=== PATIENT | male | born 1960 | race Caucasian/White ===

== ENCOUNTER 2017-09-10 23:40 | Emergency (ER) | payer OTHER ==
[2017-09-11] MEDS ORDERED: SODIUM CHLORIDE 0.9% 1,000 ML IV ONE (00:38)
[2017-09-11] MEDS ORDERED: ONDANSETRON 4 MG/2 ML VIAL IVP STA (00:39)
[2017-09-11] MEDS ORDERED: MORPHINE SULFATE 4 MG/ML SYRINGE IVP STA (00:39)
[2017-09-11 00:59] LABS: Basophils % (A) 0 %; Eosinophils # (A) 0.1 k/uL (0-0.7); Eosinophils % (A) 1 %; HCT 37.7 % (39.0-53.0); HGB 12.8 gm/dL (13.0-17.5); Lymphocytes # (A) 1.3 k/uL (1.0-4.8); Lymphocytes % (A) 11 %; MCH 31.2 pg (25.0-35.0); MCHC 34.1 g/dL (31.0-37.0); MCV 91.6 fL (80.0-100.0); Monocytes # (A) 0.8 k/uL (0-1.0); Monocytes % (A) 7 %; Neutrophils # (A) 9.3 k/uL (1.3-7.7); Neutrophils % (A) 79 %; Platelet Count 430 k/uL (150-450); RBC 4.11 m/uL (4.30-5.90); RDW 12.7 % (11.5-15.5); WBC 11.8 k/uL (3.8-10.6)
[2017-09-11 01:11] LABS: ALT 35 U/L (21-72); AST 17 U/L (17-59); Alkaline Phosphatase 76 U/L (38-126); Amylase 65 U/L (30-110); Anion Gap 17 mmol/L; Blood Urea Nitrogen 11 mg/dL (9-20); Calcium 9.3 mg/dL (8.4-10.2); Carbon Dioxide 25 mmol/L (22-30); Chloride 100 mmol/L (98-107); Glucose 105 mg/dL (74-99); Lipase 77 U/L (23-300); Potassium 4.3 mmol/L (3.5-5.1); Sodium 142 mmol/L (137-145); Total Bilirubin 0.9 mg/dL (0.2-1.3); Total Protein 7.1 g/dL (6.3-8.2)
[2017-09-11 01:19] LABS: Creatine Kinase 94 U/L (55-170)
--- NOTE | 2017-09-11 01:22 | XR ---
EXAMINATION TYPE: XR chest 2V DATE OF EXAM: 09/11/2017 COMPARISON: NONE HISTORY: Right-sided chest pain and back pain. TECHNIQUE: Frontal and lateral views of the chest are obtained. FINDINGS: Heart and mediastinum are normal. There is some patchy infiltrate in the right lower lobe. There is small linear density at the left lung base. There is also right middle lobe wedge-shaped in filtrate. There is no heart failure. Bony thorax is intact. IMPRESSION: There is right middle lobe and right lower lobe pneumonia. Possible small right pleural effusion. No heart failure.
[2017-09-11 01:32] LABS: Creatine Kinase MB 1.1 ng/mL (0.0-2.4); Troponin I <0.012 ng/mL (0.000-0.034)
[2017-09-11] MEDS ORDERED: cefTRIAXone IN SWFI 1,000 MG/10 ML SYRINGE IVP STA (01:39)
[2017-09-11] MEDS ORDERED: AZITHROMYCIN 500 MG in SODIUM CHLORIDE 0.9% 250 ML IVPB STA (01:39)
[2017-09-11] MEDS ORDERED: RX INFO: IV CONTRAST WAS GIVEN 1 EACH MISC MISCELLANE PRN (01:49)
[2017-09-11] MEDS ORDERED: KETOROLAC 30 MG/ML 1 ML VIAL IVP STA (01:50)
[2017-09-11 01:51] LABS: Appearance,Urine Clear (Clear); Bilirubin,Urine Negative (Negative); Blood,Urine Negative (Negative); Color,Urine Yellow; Glucose,Urine (UA) Negative (Negative); Ketones,Urine Negative (Negative); Leukocyte Esterase,Urine Negative (Negative); Nitrite,Urine Negative (Negative); PH, Urine 5.5 (5.0-8.0); Protein,Urine Trace (Negative); Specific Gravity,Urine 1.015 (1.001-1.035)
--- NOTE | 2017-09-11 02:25 | CT ---
EXAMINATION TYPE: CT chest angio for PE DATE OF EXAM: 09/11/2017 COMPARISON: NONE HISTORY: No prior, lower right sided chest and back pain that radiates to abd, R/O PE CT DLP: 534.80 mGycm Automated exposure control for dose reduction was used. CONTRAST: CT Chest for pulmonary embolism performed with with IV Contrast, patient injected with 95ml mL of Iso satnam 370. FINDINGS: There are 3-D post processed images. There is a 6 cm wedge-shaped area of pneumonic consolidation in the right middle lobe. There is small right pleural effusion. There is some infiltrate and atelectasis at the right posterior lung base. T here is mild subsegmental atelectasis at the left lung base. I see no filling defects in the pulmonar y arteries. There is no evidence of aortic aneurysm or dissection. There are a few mediastinal lymph nodes that measure up to 1 cm. There are no hilar masses. The bony thorax is intact. IMPRESSION: Pneumonic infiltrates and consolidation as above in the right middle lobe and right lower lobe consis tent with pneumonia. No evidence of pulmonary embolism. Small right pleural effusion.
[2017-09-11 02:45] VITALS: RESP 20
[2017-09-11 03:22] VITALS: TEMP 98.8
--- NOTE | 2017-09-11 03:59 | ED ---
General Adult HPI - General Chief complaint: Back Pain/Injury Stated complaint: side and back pain Time Seen by Provider: 09/11/17 00:02 Source: patient Mode of arrival: ambulatory Limitations: no limitations - History of Present Illness Initial comments: 56-year-old male patient presents to the emergency department today for evaluation of right-sided flank pain. Patient states that he has had this pain for approximately the last week however has been worsening. Patient states that today the pain moved over into the right upper quadrant and up into the right side of his chest. Patient states that it hurts when he takes a deep breath however denies any dyspnea. He states that he has had a dry cough with this as well. Denies any fevers or chills. Denies any nausea or vomiting. Denies any sweats. Patient denies any recent rash, nausea, vomiting, diarrhea, constipation, back pain, numbness, tingling, dizziness, weakness, hematuria, dysuria, urinary urgency, urinary frequency, headache, visual changes, or any other complaints. - Related Data Previous Rx's Medication Instructions Recorded Azithromycin [Zithromax] 500 mg PO DAILY #5 tab 09/11/17 Ketorolac [Toradol] 10 mg PO Q6HR #12 tab 09/11/17 Allergies Allergy/AdvReac Type Severity Reaction Status Date / Time No Known Allergies Allergy Verified 09/10/17 23:51 Review of Systems ROS Statement: Those systems with pertinent positive or pertinent negative responses have been documented in the HPI. ROS Other: All systems not noted in ROS Statement are negative. Past Medical History Past Medical History: No Reported History History of Any Multi-Drug Resistant Organisms: None Reported Past Surgical History: Heart Catheterization Past Psychological History: No Psychological Hx Reported Smoking Status: Never smoker Past Alcohol Use History: Occasional Past Drug Use History: None Reported General Exam Limitations: no limitations General appearance: alert, in no apparent distress, other (This is a well- developed, well-nourished adult male patient in no acute distress. Vital signs upon presentation are temperature 100.8F, pulse 91, respirations 18, blood pressure 137/68, pulse ox 96% on room air.) Eye exam: Present: normal appearance, PERRL, EOMI. Absent: scleral icterus, conjunctival injection, periorbital swelling ENT exam: Present: normal exam, normal oropharynx, mucous membranes moist Respiratory exam: Present: normal lung sounds bilaterally. Absent: respiratory distress, wheezes, rales, rhonchi, stridor Cardiovascular Exam: Present: regular rate, normal rhythm, normal heart sounds. Absent: systolic murmur, diastolic murmur, rubs, gallop, clicks GI/Abdominal exam: Present: soft, normal bowel sounds. Absent: distended, tenderness, guarding, rebound, rigid Back exam: Present: normal inspection. Absent: CVA tenderness (R), CVA tenderness (L) Neurological exam: Present: alert, oriented X3, CN II-XII intact Psychiatric exam: Present: normal affect, normal mood Skin exam: Present: warm, dry, intact, normal color. Absent: rash Course Vital Signs 09/10/17 09/11/17 09/11/17 23:47 02:44 03:00 Temperature 100.8 F H 99 F 98.8 F Pulse Rate 91 83 87 Respiratory 18 20 20 Rate Blood Pressure 137/68 104/60 110/70 O2 Sat by Pulse 96 95 96 Oximetry EKG Findings - EKG Comments: EKG Findings:: EKG obtained at 0044 shows normal sinus rhythm with minimal voltage criteria for LVH. Ventricular rate is 79, NC interval 164, QR jainism 90, QT 374, QTC 428. No evidence of ST elevation or depression. Medical Decision Making - Medical Decision Making 56-year-old male patient presented to the emergency department today for complaints of right flank pain with radiation into the right side of his chest. Physical examination was relatively unremarkable. No abdominal tenderness, no CVA tenderness. Labs reviewed and did show white blood cell count of 11.8, neutrophil count of 9.3. Urinalysis was negative for any evidence of blood. Influenza testing was negative. Patient did have a fever 100.8 upon arrival. Chest x-ray did show right lower lobe and right middle lobe infiltrate with a right-sided small pleural effusion. Patient was given morphine here in the department but continued to have significant pain so I did order CTA of the chest. CTA just redemonstrated the right middle and right lower lobe pneumonia with the pleural effusion, no evidence of a mass or pulmonary embolism. I did discuss findings and results with the patient. He had significant improvement in his pain with administration of Toradol. Vital signs are stable. We did give a dose of Rocephin and azithromycin here in the emergency department. He' ll be discharged home with a prescription for azithromycin. He is instructed to follow-up with his primary care physician for recheck in 1-2 days. Return parameters were discussed in detail. He verbalizes understanding and agreed with this plan. - Lab Data Result diagrams: 09/11/17 00:20 09/11/17 00:20 Lab Results 09/11/17 09/11/17 09/11/17 Range/Units 00:20 00:20 00:20 WBC 11.8 H (3.8-10.6) k/uL RBC 4.11 L (4.30-5.90) m/uL Hgb 12.8 L (13.0-17.5) gm/dL Hct 37.7 L (39.0-53.0) % MCV 91.6 (80.0-100.0) fL MCH 31.2 (25.0-35.0) pg MCHC 34.1 (31.0-37.0) g/dL RDW 12.7 (11.5-15.5) % Plt Count 430 (150-450) k/uL Neutrophils % 79 % Lymphocytes % 11 % Monocytes % 7 % Eosinophils % 1 % Basophils % 0 % Neutrophils # 9.3 H (1.3-7.7) k/uL Lymphocytes # 1.3 (1.0-4.8) k/uL Monocytes # 0.8 (0-1.0) k/uL Eosinophils # 0.1 (0-0.7) k/uL Basophils # 0.0 (0-0.2) k/uL Sodium 142 (137-145) mmol/L Potassium 4.3 (3.5-5.1) mmol/L Chloride 100 (98-107) mmol/L Carbon Dioxide 25 (22-30) mmol/L Anion Gap 17 mmol/L BUN 11 (9-20) mg/dL Creatinine 1.00 (0.66-1.25) mg/dL Est GFR (CKD-EPI)AfAm >90 (>60 ml/min/1.73 sqM) Est GFR (CKD-EPI)NonAf 84 (>60 ml/min/1.73 sqM) Glucose 105 H (74-99) mg/dL Plasma Lactic Acid José Miguel (0.7-2.0) mmol/L Calcium 9.3 (8.4-10.2) mg/dL Total Bilirubin 0.9 (0.2-1.3) mg/dL AST 17 (17-59) U/L ALT 35 (21-72) U/L Alkaline Phosphatase 76 (38-126) U/L Total Creatine Kinase 94 (55-170) U/L CK-MB (CK-2) 1.1 (0.0-2.4) ng/mL CK-MB (CK-2) Rel Index 1.2 Troponin I <0.012 (0.000-0.034) ng/mL Total Protein 7.1 (6.3-8.2) g/dL Albumin 4.0 (3.5-5.0) g/dL Amylase 65 (30-110) U/L Lipase 77 (23-300) U/L Urine Color Urine Appearance (Clear) Urine pH (5.0-8.0) Ur Specific [place] (1.001-1.035) Urine Protein (Negative) Urine Glucose (UA) (Negative) Urine Ketones (Negative) Urine Blood (Negative) Urine Nitrite (Negative) Urine Bilirubin (Negative) Urine Urobilinogen (<2.0) mg/dL Ur Leukocyte Esterase (Negative) Influenza Type A RNA (Not Detectd) Influenza Type B (PCR) (Not Detectd) 09/11/17 09/11/17 09/11/17 Range/Units 00:20 01:44 01:44 WBC (3.8-10.6) k/uL RBC (4.30-5.90) m/uL Hgb (13.0-17.5) gm/dL Hct (39.0-53.0) % MCV (80.0-100.0) fL MCH (25.0-35.0) pg MCHC (31.0-37.0) g/dL RDW (11.5-15.5) % Plt Count (150-450) k/uL Neutrophils % % Lymphocytes % % Monocytes % % Eosinophils % % Basophils % % Neutrophils # (1.3-7.7) k/uL Lymphocytes # (1.0-4.8) k/uL Monocytes # (0-1.0) k/uL Eosinophils # (0-0.7) k/uL Basophils # (0-0.2) k/uL Sodium (137-145) mmol/L Potassium (3.5-5.1) mmol/L Chloride (98-107) mmol/L Carbon Dioxide (22-30) mmol/L Anion Gap mmol/L BUN (9-20) mg/dL Creatinine (0.66-1.25) mg/dL Est GFR (CKD-EPI)AfAm (>60 ml/min/1.73 sqM) Est GFR (CKD-EPI)NonAf (>60 ml/min/1.73 sqM) Glucose (74-99) mg/dL Plasma Lactic Acid José Miguel 1.4 (0.7-2.0) mmol/L Calcium (8.4-10.2) mg/dL Total Bilirubin (0.2-1.3) mg/dL AST (17-59) U/L ALT (21-72) U/L Alkaline Phosphatase (38-126) U/L Total Creatine Kinase (55-170) U/L CK-MB (CK-2) (0.0-2.4) ng/mL CK-MB (CK-2) Rel Index Troponin I (0.000-0.034) ng/mL Total Protein (6.3-8.2) g/dL Albumin (3.5-5.0) g/dL Amylase (30-110) U/L Lipase (23-300) U/L Urine Color Yellow Urine Appearance Clear (Clear) Urine pH 5.5 (5.0-8.0) Ur Specific [place] 1.015 (1.001-1.035) Urine Protein Trace H (Negative) Urine Glucose (UA) Negative (Negative) Urine Ketones Negative (Negative) Urine Blood Negative (Negative) Urine Nitrite Negative (Negative) Urine Bilirubin Negative (Negative) Urine Urobilinogen 3.0 (<2.0) mg/dL Ur Leukocyte Esterase Negative (Negative) Influenza Type A RNA Not Detected (Not Detectd) Influenza Type B (PCR) Not Detected (Not Detectd) - Radiology Data Radiology results: report reviewed, image reviewed Two-view x-ray of the chest was obtained. Heart mediastinum are normal. There is some patchy infiltrate in the right lower lobe. There is small linear density at the left lung base. There is also right middle lobe wedge-shaped infiltrate. There is no heart failure. Bony thorax is intact. Impression by Dr. Marks shows right middle lobe and right lower lobe pneumonia. Possible small right pleural effusion. No heart failure. CT angio of the chest was obtained. Report was reviewed in its entirety. Impression by Dr. Marks shows pneumonic infiltrates and consolidation as above in the right middle lobe and right lower lobe consistent with pneumonia. No evidence of pulmonary embolism. Small right pleural effusion. Disposition Clinical Impression: Right lower lobe pneumonia, Pleural effusion, right, Right middle lobe pneumonia Disposition: HOME SELF-CARE Condition: Good Instructions: Pneumonia (ED) Additional Instructions: Complete antibiotic prescription and full. Use pain medication as directed. Follow-up with your primary care physician for recheck in 1-2 days. Have repeat chest x-ray performed after completion of antibiotic to ensure clearance of infection. Return here immediately for any new, worsening, or concerning symptoms. Prescriptions: Azithromycin [Zithromax] 500 mg PO DAILY #5 tab Ketorolac [Toradol] 10 mg PO Q6HR #12 tab Is patient prescribed a controlled substance at d/c from ED?: No Referrals: Moisés Milan MD [Primary Care Provider] - 1-2 days Time of Disposition: 03:59
[2017-09-11 04:26] VITALS: BP 102/62; PULSE 97
== END 2017-09-11 04:26 | disposition home or self-care (01) ==
LOC: EC 23:40
DX: J18.9 Pneumonia, unspecified organism (principal); J90 Pleural effusion, not elsewhere classified; Z95.818 Presence of other cardiac implants and grafts
CPT/HCPCS: 36415; 93005; 80053; 82150; 82550; 82553; 83605; 83690; 84484; 85025; 81003; 87040; 87502; 71046; 71275; 99284; 96365; 96366; 96375 ×4; 96361; J2270; J2405; J0456; J0696; J1885; Q9967

== ENCOUNTER 2020-05-23 08:36 | Day surgery (SDC) | payer OTHER ==
[2020-05-21 14:54] VITALS: BMI 31.4
[~2020-05-23 08:36] MED LIST: LACTATED RINGERS 1,000 ML IV SCH; LIDOCAINE 1% (10MG/ML) FOR IV START INTRADERMA PRN
[2020-05-23 09:25] VITALS: RESP 16; TEMP 98.3
[2020-05-23] MEDS ORDERED: MIDAZOLAM 2 MG/2 ML VIAL ONE (10:20)
[2020-05-23] MEDS ORDERED: PROPOFOL 10 MG/ML 20 ML VIAL IV ONE (10:20)
[2020-05-23] MEDS ORDERED: fentaNYL (PF) 50 MCG/ML 2 ML AMP ONE (10:20)
--- NOTE | 2020-05-23 10:27 | P.GSHP ---
History of Present Illness H&P Date: 05/23/20 Chief Complaint: Screening colonoscopy This a 51-year-old male who presents today for screening colonoscopy. Patient denies any significant complaint. Past Medical History Past Medical History: No Reported History History of Any Multi-Drug Resistant Organisms: None Reported Past Surgical History: Heart Catheterization Additional Past Surgical History / Comment(s): COLONOSCOY Past Anesthesia/Blood Transfusion Reactions: No Reported Reaction Smoking Status: Never smoker - Past Family History Mother Family Medical History: No Reported History Medications and Allergies Home Medications Medication Instructions Recorded Confirmed Type HYDROcodone/APAP 5-325MG [Organ 1 tab PO BID 05/21/20 05/23/20 History 5-325] Allergies Allergy/AdvReac Type Severity Reaction Status Date / Time No Known Allergies Allergy Verified 05/21/20 14:48 Surgical - Exam Vital Signs Temp Pulse Resp BP Pulse Ox 98.3 F 80 16 145/91 96 05/23/20 09:21 05/23/20 09:21 05/23/20 09:21 05/23/20 09:21 05/23/20 09:21 - General well developed, well nourished, no distress - Eyes PERRL - ENT normal pinna - Neck no masses - Respiratory normal expansion - Cardiovascular Rhythm: regular - Abdomen Abdomen: soft, non tender Assessment and Plan Assessment: We will perform screening colonoscopy
--- NOTE | 2020-05-23 10:43 | P.OP ---
Date of Procedure: 05/23/20 Preoperative Diagnosis: Screening colonoscopy Postoperative Diagnosis: Normal colonoscopy Procedure(s) Performed: Colonoscopy Anesthesia: MAC Surgeon: Misael Hurst Pathology: none sent Condition: stable Disposition: PACU Description of Procedure: PROCEDURE: The patient was placed on the endoscopy table in the lateral position. Digital rectal examination was performed which revealed no abnormalities. The prostate was symmetrical without nodules. Flexible colonoscope was then placed in the patient's anus and passed throughout the entire colon. The ileocecal valve was visualized. The cecum, ascending, transverse, descending and sigmoid colon were normal. The rectum was normal as well. There were no masses, polyps or diverticula noted in the entire colon. SUMMARY OF FINDINGS: Normal colonoscopy.
[2020-05-23 11:00] VITALS: BP 117/76; PULSE 81
--- NOTE | 2020-05-23 11:09 | P.OP ---
Date of Procedure: 05/23/20 Preoperative Diagnosis: Blood in stool Postoperative Diagnosis: Hepatic flexure polyp pathology pending Procedure(s) Performed: Colonoscopy Anesthesia: MAC Surgeon: Misael Hurst Pathology: other (Hepatic flexure polyp) Condition: stable Disposition: PACU Description of Procedure: The patient's placed on the endoscopy table in the lateral position. He received IV sedation. Digital rectal exam was performed which revealed no abnormalities. Flexible colonoscope was then placed anus passed throughout the entire colon. Ileocecal valve visualized. Cecum and ascending colon. At the level of the flexure there was a large pedunculated polyp.(In combination of snare and the cold forcep. The polyp was friable and bleeding. Scope was withdrawn. Remainder of the transverse colon descending colon and sigmoid colon appeared normal. Scope was then brought back the rectum and this appeared normal. Scope was withdrawn for patient.
== END 2020-05-23 11:33 | disposition home or self-care (01) ==
LOC: ORWHC2ENDO 08:36
PROVIDERS: ATTEND Surgery
DX: Z12.11 Encounter for screening for malignant neoplasm of colon (principal); K08.409 Partial loss of teeth, unspecified cause, unspecified class; M77.9 Enthesopathy, unspecified; Z98.890 Other specified postprocedural states; Z79.891 Long term (current) use of opiate analgesic
CPT/HCPCS: J2250; J3010; J2704; G0121; 45378

== ENCOUNTER → 2021-12-31 | Day surgery (SDC) | payer OTHER ==
[~2021-12-31] MED LIST changes: +ACETAMINOPHEN TAB 500 MG TAB PO PRN; +BUPIVACAIN-EPI 0.25%-1:200,000 30 ML VIAL SQ ONE; +DEXAMETHASONE SOD PHOSPHATE 4 MG/ML 1 ML VIAL IVP ONE; +DEXAMETHASONE SOD PHOSPHATE 4 MG/ML 1 ML VIAL ONE; +GLYCOPYRROLATE 0.2 MG/ML 2 ML VIAL ONE; +HEPARIN SODIUM,PORCINE/PF 5,000 UNIT/0.5 ML SYRINGE SQ PRN; +HYDROmorphone (PF) 1 MG/ML ONE; +HYDROmorphone 0.5 MG/0.5 ML SYRINGE IVP ONE; +KETAMINE 10 MG/ML 20 ML VIAL ONE; +KETOROLAC 15 MG/ML 1 ML VIAL ONE; +LACTATED RINGERS 1,000 ML IV ONE; +LIDOCAINE 2% INJ 20 MG/ML (2 ML VIAL) ONE; +MIDAZOLAM 2 MG/2 ML VIAL IVP ONE; +MIDAZOLAM 2 MG/2 ML VIAL ONE; +NEOSTIGMINE 1 MG/ML 10 ML VIAL ONE; +ONDANSETRON 4 MG/2 ML VIAL ONE; +PROPOFOL 10 MG/ML 20 ML VIAL IV ONE; +ROCURONIUM 10 MG/ML (5 ML VIAL) IV ONE; +SODIUM CHLORIDE 0.9% (PF) 10 ML VIAL ONE; +SUCCINYLCHOLINE CHLORIDE 200 MG/10 ML VIAL IV ONE; +fentaNYL (PF) 50 MCG/ML 2 ML AMP ONE
--- NOTE | 2021-12-31 09:10 | P.GSHP ---
History of Present Illness H&P Date: 12/31/21 Chief Complaint: Left inguinal hernia This a 7-year-old male developed a left inguinal hernia. Patient presents today for laparoscopic robotic-assisted repair. Past Medical History Past Medical History: Musculoskeletal Disorder Additional Past Medical History / Comment(s): tendonitis hands History of Any Multi-Drug Resistant Organisms: None Reported Past Surgical History: Heart Catheterization Additional Past Surgical History / Comment(s): COLONOSCOPY x2, denies having a heart cath in past Past Anesthesia/Blood Transfusion Reactions: No Reported Reaction Smoking Status: Former smoker - Past Family History Mother Family Medical History: No Reported History Medications and Allergies Home Medications Medication Instructions Recorded Confirmed Type HYDROcodone/APAP 5-325MG [[place] 1 tab PO BID PRN 05/21/20 12/31/21 History 5-325] Allergies Allergy/AdvReac Type Severity Reaction Status Date / Time No Known Allergies Allergy Verified 12/31/21 06:32 Surgical - Exam Vital Signs Temp Pulse Resp BP Pulse Ox 97.8 F 70 16 135/80 99 12/31/21 06:39 12/31/21 06:39 12/31/21 06:39 12/31/21 06:39 12/31/21 06:39 - General well developed, well nourished, no distress - Eyes PERRL - ENT normal pinna - Neck no masses - Respiratory normal expansion - Cardiovascular Rhythm: regular - Abdomen Abdomen: soft, non tender Hernia: inguinal (Left inguinal hernia) Assessment and Plan Assessment: Left inguinal hernia. We'll perform laparoscopic robotic-assisted repair.
--- NOTE | 2021-12-31 09:12 | P.OP ---
Date of Procedure: 12/31/21 Preoperative Diagnosis: Left inguinal hernia Postoperative Diagnosis: Bilateral inguinal hernia Bilateral cord lipoma Procedure(s) Performed: Laparoscopic robotic repair of bilateral inguinal hernias Excision of bilateral cord lipoma Transversus abdominis plane block Anesthesia: TABBY Surgeon: Misael Hurst Estimated Blood Loss (ml): 5 Pathology: other (Cord lipoma) Condition: stable Disposition: PACU Description of Procedure: The patient's placed on the operating table in the supine position. The patient received general anesthesia. The patient's abdomen was prepped and draped in usual sterile fashion. The skin was anesthetized 1% local Xylocaine at the incision sites. Using an 11 blade a skin incision was made at the umbilicus. The fascia was grasped with a Jerry and then the peritoneal cavity was entered with the Veress needle. Position of the Veress needle was confirmed with a positive drop test. After adequate insufflation a 5 mm trocar was placed into the peritoneal cavity. The Laparoscope was placed the peritoneal cavity. And a robotic 8 mm trocar was placed in the right lateral position and then another 8 mm robotic trochars placed in the left lateral position. The original 5 mm trocar was exchanged for a 12 mm trocar. The patient was placed in reverse Trendelenburg and then the patient was docked to the robot. Next the peritoneum over top of the right inguinal hernia was incised and then using blunt and sharp dissection and electrocautery the hernia sac was dissected free from the floor of the inguinal canal. The cord lipoma was dissected free and sent to pathology The hernia sac was completely reduced into the peritoneal cavity. And then using the Pro book jacket cover machine operator mesh the hernia was repaired. The peritoneum was then sutured with 20V lock suture. Next the peritoneum over top of the left inguinal hernia was incised and then using blunt and sharp dissection and electrocautery the hernia sac was dissected free from the floor of the inguinal canal. The cord lipoma was dissected free and sent to pathology The hernia sac was completely reduced into the peritoneal cavity. And then using the Pro book jacket cover machine operator mesh the hernia was repaired. The peritoneum was then sutured with 20V lock suture. The patient was then undocked the robot. The needle was withdrawn from the peritoneal cavity. A four-quadrant transversus abdominis plane block was performed with 1% local Xylocaine. The umbilical trocar site was closed with 0 Ethibond suture. The skin was closed interrupted 3-0 Monocryl suture. Dermabond dressing was applied. Patient was sent to recovery in stable condition.
[2021-12-31 09:22] VITALS: TEMP 97.5
[2021-12-31 10:47] VITALS: BP 138/76; PULSE 58; RESP 16
--- NOTE | 2021-12-31 13:07 | P.ANPRN ---
Procedure Note - Anesthesia - Nerve Block Performed Bilateral Erector Spinae Single Time Out Performed: Yes Date of Procedure: 12/31/21 Procedure Start Time: :08 Procedure Stop Time: 07:11 Location of Patient: PreOp Indication: Acute Post-Operative Pain, Requested by Surgeon Sedation Type: Sedate with meaningful contact maintained Preparation: Sterile Prep Position: Prone Needle Types: Pajunk Needle Gauge: 21 Ultrasound used to visualize needle placement: Yes Ultrasound used to observe medication spread: Yes Blood Aspirated: No Pain Paresthesia on Injection Noted: No Resistance on Injection: Normal Image Stored and Saved: Yes Events: Uneventful and Well Tolerated (Ropivacaine 0.5% 15 mL plus normal saline 10 mL an plus dexamethasone 4 mg given bilaterally at L1)
== END | disposition home or self-care (01) ==
LOC: OR 06:06
PROVIDERS: ATTEND Surgery
DX: K40.20 Bilateral inguinal hernia, without obstruction or gangrene, not specified as recurrent (principal); D17.6 Benign lipomatous neoplasm of spermatic cord; G89.18 Other acute postprocedural pain; Z87.891 Personal history of nicotine dependence
CPT/HCPCS: 64999; 76942; 86900; 86901; 86850; 49650; C1781 ×2; J2250; J0330; J1100; J2710; J0690; J2405; J3010; J1170 ×2; J1885; J2704; J1644; J2001; 88304

== ENCOUNTER 2023-12-14 09:30 | Day surgery (SDC) | payer BC, OTHER ==
[2023-12-14] MEDS ORDERED: ACETAMINOPHEN TAB 500 MG TAB ONE (11:02)
[2023-12-14] MEDS ORDERED: HEPARIN SODIUM,PORCINE 5,000 UNIT/ML 1 ML VIAL ONE (11:02)
[2023-12-14] MEDS ORDERED: ONDANSETRON 4 MG/2 ML VIAL ONE (11:03)
[2023-12-14] MEDS ORDERED: MIDAZOLAM 2 MG/2 ML VIAL ONE (11:03)
[2023-12-14] MEDS ORDERED: DEXAMETHASONE SOD PHOSPHATE 4 MG/ML 1 ML VIAL ONE (11:03)
[2023-12-14] MEDS ORDERED: LACTATED RINGERS 1,000 ML BAG ONE (12:21)
[2023-12-14] MEDS ORDERED: ROCURONIUM 10 MG/ML (5 ML VIAL) IV ONE (12:21)
[2023-12-14] MEDS ORDERED: SODIUM CHLORIDE 0.9% 50 ML BAG ONE (12:21)
[2023-12-14] MEDS ORDERED: SUCCINYLCHOLINE CHLORIDE 200 MG/10 ML VIAL IV ONE (12:21)
[2023-12-14] MEDS ORDERED: KETOROLAC 15 MG/ML 1 ML VIAL ONE (12:21)
[2023-12-14] MEDS ORDERED: HYDROmorphone (PF) 1 MG/ML ONE (12:21)
[2023-12-14] MEDS ORDERED: LIDOCAINE 1%-EPI 1:100,000 20 ML VIAL ONE (12:21)
[2023-12-14] MEDS ORDERED: ceFAZolin 1,000 MG VIAL ONE (12:21)
[2023-12-14] MEDS ORDERED: KETAMINE HCL IN 0.9 % NACL 50 MG/5 ML SYRINGE ONE (12:21)
[2023-12-14] MEDS ORDERED: fentaNYL (PF) 50 MCG/ML 2 ML AMP ONE (12:21)
[2023-12-14] MEDS ORDERED: PROPOFOL 10 MG/ML 20 ML VIAL IV ONE (12:21)
[2023-12-14] MEDS ORDERED: NEOSTIGMINE 1 MG/ML 10 ML VIAL ONE (12:21)
[2023-12-14] MEDS ORDERED: GLYCOPYRROLATE 0.2 MG/ML 2 ML VIAL ONE (12:21)
[2023-12-14] MEDS ORDERED: LIDOCAINE 1% INJ 10MG/ML (20 ML MDV) ONE (12:21)
[2023-12-14] MEDS ORDERED: HYDROmorphone 0.5 MG/0.5 ML SYRINGE ONE ×2 (13:54→14:09)
== END 2023-12-14 15:30 ==
LOC: OR 09:30
PROVIDERS: ATTEND Surgery
DX: K40.90 Unilateral inguinal hernia, without obstruction or gangrene, not specified as recurrent (principal)